=== PATIENT | male | born 2005 | race Caucasian/White ===

== ENCOUNTER 2025-04-26 09:37 | Outpatient (REF) | payer OTHER, SELFPAY ==
--- OUTSIDE RECORDS SUMMARY | 2025-04-26 09:45 | XMS_ITS | Encounter Summary ---
Author Organization [facility] Address [address] [place], [place] [id number] Phone Care Team Providers Care International Logistics Analyst Name Role Phone Azucena Zepeda MD Primary Care Provider [phone] Encounter Details Date Type Department Care Team (Late st Contact Info) Description 12/22/2016 Conversion Encounter [facility] [place] [address] [place] [address] Social History Tobacco Use Types Packs/Day Years Used Date Smoking Tobacco: Never Assessed Sex and Gender Information Value Date Recorded Sex Assigned at Not on file Legal Sex Male 4:29 PM EDT Gender Identity Not on file Sexual Orientation Not on file documented as of this encounter Plan of Treatment Not on file documented as of this encounter Visit Diagnoses Not on filedocumented in this encounter Care Teams International Logistics Analyst Relationship Specialty Start Date End Date Azucena Zepeda MD [address] [place] [address] PCP - General 12/16/16 08/15/22 documented as of this encounter
--- OUTSIDE RECORDS SUMMARY | 2025-04-26 09:45 | XMS_ITS | Clinical Summary ---
Author Organization [facility] Address [address] [place] [id number] Phone Care Team Providers Care Dental Technician Apprentice Name Role Phone Unavailable Primary Care Provider Unavailabl e Immunizations Immunization Administration Dates Next Due DTaP 5 01/03/2008, 5,2003,2003 ,2003 Hep B, ped/adol 2003,2003,2003 Hib (HbOC) 08/19/2004 Hib (PRP-T) 2003,2003,2003 IPV 01/03/2008,03/11/2004,2003 ,2003 Influenza, injectable, trivalent 009,03/01/2007,04/12/2006,05/17/2005 ,03/25/2005 MMR 01/03/2008,08/19/2004 Pneumococcal Conjugate 08/19/2004,2003,09/2003,2003 Varicella 01/03/2008,03/11/2004 Family History Relation Name Status Comments Father Father: Asthma, Migraines Other No family histo ry of Developmental dislocation of hip, Family history of Elevated cholesterol, No family history of Obesity, No family history of Strabismus/amblyopia, No family history of Seizure disorder, No family history of Diabetes mellitus, Family history of Sudden /[place] under age 55, No family history of Autism, No family history of ADD/ADHD, No family history of Deafness Social History Tobacco Use Types Packs/Day Years Used Date Smoking Tobacco: Never Assessed Sex and Gender Information Value Date Recorded Sex Assigned at Not on file Legal Sex Male 4:29 PM EDT Gender Identity Not on file Sexual Orientation Not on file Plan of Treatment Health Maintenance Due Date Last Done Comments DTaP,Tdap,and Td Vaccines (6 - Tdap) 2014 01/03/2008, 08/19/2004, 2003, Additional history exists HPV Vaccines (1 - Male 3-dose series) 2018 Men B Vaccine (1 of 2 - Standard) 2019 Influenza Vaccines (#1) 2024 01/10/20 09, 03/01/2007, 04/12/2006, Additional history exists COVID-19 Vaccine ( - ) 01/06/2025 Hepatitis B Vaccines Completed 2003, 2003, 2003 HIB Vaccines Completed 08/19/2004, 11/2003, 2003, Additional history exists Pneumococcal Vaccine Completed 08/19/2004, 2003, 2003, Additional history exists IPV Vaccines Completed 01/03/2008, 08/2003, 2003, Additional history exists MMR Vaccines Completed 01/03/2008, 08/19/2004 Varicella Vaccines Completed 01/03/2008, 03/11/2004 Hepatitis A Vaccines Aged Out No long er eligible based on patient's age to complete this topic Meningococcal Vaccine Aged Out No romelia best eligible based on patient's age to complete this topic
--- OUTSIDE RECORDS SUMMARY | 2025-04-26 09:45 | XMS_ITS | Clinical Summary ---
Author Organization [facility] Address [address] [place] [id number] Phone Care Team Providers Care Lock Corner Machine Operator Name Role Phone Charan Dimas MD Primary Care Provider [phone] Social History Tobacco Use Types Packs/Day Years Used Date Smoking Tobacco: Never Assessed Education Answer Date Recorded Are you interested in more education? Not on hank e 09/02/2022 Are you concerned about learning? Not on file 09/02/2022 No 09/02/2022 No 09/02/2022 Digital Access Answer Date Recorded No 10/03/2022 No 10/03/2022 No 10/03/2022 Reliable internet access at home? Not on file 10/03/2022 Device with a working camera? Not on file Sex and Gender Information Value Date Recorded Sex Assigned at Not on file Legal Sex Male 8:44 PM EDT Gender Identity Not on file Sexual Orientation Not on file Plan of Treatment Health Maintenance Due Date Last Done Comments DEPRESSION SCREENING 2015 SMOKING Hx and SMOKELESS TOBACCO SCREENING 2016 HPV VACCINES (1 - Male 3-dose series) 2018 MENINGOCOCCAL VACCINES (B) (1 of 2 - Standard) 2019 HEPATITIS C SCREENING 2021 HIV ONE-TIME SCREENING (18-65 YEARS) 2021 Adult Td,Tdap Booster 08/03/2023 08/02/2013 INFLUENZA VACCINE (#1) 2024 0, 02/06/2018, 03/16/2016, Additional history exists COVID-19 VACCINE ( season) 2025 HIB VACCINES Completed 08/19/2004, 11/2003, 2003, Additional history exists PNEUMOCOCCAL VACCINES (0-49 years) Aged Out 08/19/2004, 2003, 2003, Additional history exists No longer eligible based on patient's age to complete this topic MENINGOCOCCAL VACCINES (ACWY) Completed 01/30/2020, 11/25/2015 HEPATITIS A VACCINES Completed 04/15/2021, 11/25/19 16 Medical Devices Not on file Insurance R UNITED R Care Teams Lock Corner Machine Operator Relationship Specialty Start Date End Date Charan Dimas MD [address] [place] [phone] PCP - General Family Medicine 08/09/21 Additional Source Comments The information contained in this document represents components of the legal health record. It is not the complete legal health record.[facility]
[2025-04-26 09:53] LABS: MANUAL DIFF FLAG NO
[2025-04-26 10:06] LABS: Hematocrit 45.1 % (42.0-52.0); Hemoglobin 14.9 g/dl (14.0-18.0); Imm Gran Abs Auto 0.01 X10*3/uL (0.00-0.03); Imm Gran Pct Auto 0.2 % (0.0-0.4); Lymphocytes Absolute Auto 1.6 X10*3/uL (1.2-4.9); Mean Corpuscular HGB Conc 33.0 g/dl (31.0-36.0); Mean Corpuscular Hemoglobin 27.5 pg (27.0-33.0); Mean Corpuscular Volume 83.4 fL (80.0-98.0); NRBC Abs Auto 0.000 X10*3/uL (0.0-0.012); NRBC Pct Auto 0.0 /100WBC (0.0-0.2); Platelet Count 215 X10*3/uL (160-400); Red Blood Count 5.41 X10*6/uL (4.60-5.80); White Blood Count 5.1 X10*3/uL (4.8-10.8)
[2025-04-26 10:59] LABS: Alanine Aminotransferase 19 U/L (0-40); Albumin Level 4.6 g/dL (3.5-5.0); Alkaline Phosphatase 90 U/L (39-117); Anion Gap 11 (12-20); Aspartate Amino Transferase 22 U/L (5-37); Blood Urea Nitrogen 17 mg/dL (9-16); Calcium 9.3 mg/dL (8.4-10.2); Carbon Dioxide 27 mmol/L (22-29); Chloride 107 mmol/L (96-108); Cholesterol 158 mg/dL (<200); Estimated Glomerular Filt Rate > 60; HDL Cholesterol 42 mg/dL (>40); Potassium 4.7 mmol/L (3.3-5.1); Sodium 140 mmol/L (135-145); Total Protein 7.3 g/dL (6.5-8.0); Triglycerides 57 mg/dL (<150)
== END 2025-04-26 09:38 | disposition home or self-care (01) ==
LOC: HO.LAB 09:37
PROVIDERS: Visit Provider Internal Medicine
DX: Z00.00 Encounter for general adult medical examination without abnormal findings (principal); E78.2 Mixed hyperlipidemia
CPT/HCPCS: 36415; 80053; 80061; 84443; 85025